=== PATIENT | male | born 1970 | race Two or more races ===

== ENCOUNTER 2017-05-03 14:04 | Emergency (ER) | payer MEDICAID ==
[~2017-05-03] VITALS: Ht 177.8 cm; Wt 63.5 kg
[2017-05-03] MEDS ORDERED: NKM (14:14)
[2017-05-03 14:30] LABS: MEAN CORPUSCULAR VOLUME 97 FL (80-99); MEAN PLATELET VOLUME 7.1 FL (6.5-10.1); PLATELET COUNT 80 K/UL (150-450); RED BLOOD COUNT 4.08 M/UL (4.70-6.10); RED CELL DISTRIBUTION WIDTH 12.3 % (11.6-14.8); WHITE BLOOD COUNT 6.4 K/UL (4.8-10.8)
[2017-05-03 14:38] LABS: ALANINE AMINOTRANSFERASE 79 U/L (3-41); ALBUMIN/GLOBULIN RATIO 1.6 (1.0-2.7); ANION GAP 29 (5-15); ASPARTATE AMINO TRANSFERASE 194 U/L (5-40); CALCIUM 9.3 mg/dL (8.6-10.2); CARBON DIOXIDE 18 mEQ/L (20-30); CHLORIDE 90 mEQ/L (98-107); CREATININE 0.9 mg/dL (0.7-1.2); GLOMERULAR FILTRATION RATE > 60 mL/min (>60); HEMOLYSIS 9; POTASSIUM 3.5 mEQ/L (3.4-4.9); SODIUM 137 mEQ/L (135-145); TOTAL PROTEIN 7.8 g/dL (6.6-8.7); TROPONIN I < 0.30 ng/mL (<=0.30)
--- NOTE | 2017-05-03 14:52 | Emergency Room Report ---
History of Present Illness General Chief Complaint: Syncope Source: Patient Present Illness HPI This patient presents with a syncopal episode. The patient works here in [employer]. The patient states that he has felt a little lightheaded today. The patient himself does not recall any events and is unable to give a history. However, apparently there was a witness that was a the patient in the hospital who noted that he stared off into space and then passed out and hit his head on the floor. The patient does have pain on his head. He denies neck pain. He denies chest pain. He denies shortness of breath. He denies abdominal pain. He denies recent illness. He denies fever or chills. Denies nausea or vomiting. Denies diarrhea. He has never had a syncopal episode in the past. He denies a history of seizures. He has no other complaints. Allergies: Coded Allergies: No Known Allergies (Unverified , 05/03/17) Patient History Past Medical History: none, see triage record Social History: Reports: alcohol use - 8 beers/evening, smoking, Denies: drug use Reviewed Nursing Documentation: PMH: Agreed, PSxH: Agreed Nursing Documentation-PMH Past Medical History: No Stated History Review of Systems All Other Systems: negative except mentioned in HPI Physical Exam Vital Signs Date Time Temp Pulse Resp B/P Pulse Ox O2 Delivery O2 Flow Rate FiO2 05/03/17 14:08 99.3 63 15 134/97 95 Room Air Sp02 EP Interpretation: reviewed, normal General Appearance: no apparent distress, alert, GCS 15, non-toxic Head: normocephalic, other - [id number] area of scalp hematoma R. parietal Eyes: bilateral eye PERRL, bilateral eye normal inspection ENT: hearing grossly normal, normal pharynx, no angioedema, normal voice Neck: full range of motion, supple/symm/no masses Respiratory: chest non-tender, lungs clear, normal breath sounds, speaking full sentences Cardiovascular #1: regular rate, rhythm, no edema Gastrointestinal: normal bowel sounds, non tender, soft, non-distended, no guarding, no rebound Rectal: deferred Musculoskeletal: back normal, gait/station normal, normal range of motion, non- tender Neurologic: alert, oriented x3, responsive, motor strength/tone normal, sensory intact, speech normal Psychiatric: judgement/insight normal, memory normal, mood/affect normal, no suicidal/homicidal ideation Skin: normal color, no rash, warm/dry, well hydrated Medical Decision Making Diagnostic Impression: Primary Impression: Syncope ER Course This patient presents with a syncopal episode. Laboratory workup showed transaminitis with an elevated bilirubin. This patient does have significant alcohol use. The patient has no abdominal pain. The patient was also found to have a significant anion gap. I am unsure of the etiology of the anion gap. I obtained a lactic acid which was within normal limits. I also obtained serum ketones which was also negative. CK is mildly elevated. I decided to repeat the BMP after a couple liters of IV fluids and this showed closing of the anion gap. Possibly this patient was just dehydrated. Regardless, I will have the patient follow up for his transaminitis an elevated bili which is likely secondary to his alcohol abuse. I suspect the syncope that the patient is presenting with is a nonemergent in etiology. Regarding the history, the patient has no history of structural heart disease or coronary artery disease, no family history of sudden , has no shortness of breath, and the syncope is not exertional. On physical exam , the patient is not hypotensive, has no findings of CHF, and no significant cardiac murmur suggestive of valvular heart disease or cardiac outflow obstruction. The patient reports no history of seizure or head trauma. EKG showed no evidence of concerning findings of QT prolongation, Brugada syndrome or significant ST changes suggestive of acute ischemia, dysrhythmias or significant conduction abnormalities. On laboratory evaluation, blood sugar was non-contributory and the patient is not anemic. The patient was counseled that, though unlikely, the possibility of an emergent cause of syncope may be present and that the patient should return immediately if symptoms persist or worsen. I believe the patient is stable for discharge to followup with his PMD for further workup. Labs Test 05/03/17 14:00 05/03/17 14:10 05/03/17 15:40 05/03/17 17:00 White Blood Count 6.4 K/UL (4.8-10.8) Red Blood Count 4.08 M/UL (4.70-6.10) Hemoglobin 13.0 G/DL (14.2-18.0) Hematocrit 39.5 % (42.0-52.0) Mean Corpuscular Volume 97 FL (80-99) Mean Corpuscular Hemoglobin 32.0 PG (27.0-31.0) Mean Corpuscular Hemoglobin Concent 33.0 G/DL (32.0-36.0) Red Cell Distribution Width 12.3 % (11.6-14.8) Platelet Count 80 K/UL (150-450) Mean Platelet Volume 7.1 FL (6.5-10.1) Neutrophils (%) (Auto) % (45.0-75.0) Lymphocytes (%) (Auto) % (20.0-45.0) Monocytes (%) (Auto) % (1.0-10.0) Eosinophils (%) (Auto) % (0.0-3.0) Basophils (%) (Auto) % (0.0-2.0) Differential Total Cells Counted 100 Neutrophils % (Manual) 77 % (45-75) Lymphocytes % (Manual) 18 % (20-45) Monocytes % (Manual) 5 % (1-10) Eosinophils % (Manual) 0 % (0-3) Basophils % (Manual) 0 % (0-2) Band Neutrophils 0 % (0-8) Platelet Estimate Decreased Platelet Morphology Normal Red Blood Cell Morphology Normal Sodium Level 137 mEQ/L (135-145) 138 mEQ/L (135-145) Potassium Level 3.5 mEQ/L (3.4-4.9) 3.5 mEQ/L (3.4-4.9) Chloride Level 90 mEQ/L (98-107) 96 mEQ/L (98-107) Carbon Dioxide Level 18 mEQ/L (20-30) 25 mEQ/L (20-30) Anion Gap 29 (5-15) 17 (5-15) Blood Urea Nitrogen 8 mg/dL (7-23) 7 mg/dL (7-23) Creatinine 0.9 mg/dL (0.7-1.2) 0.6 mg/dL (0.7-1.2) Estimat Glomerular Filtration Rate > 60 mL/min (>60) > 60 mL/min (>60) Glucose Level 144 mg/dL (74-106) 105 mg/dL (74-106) Calcium Level 9.3 mg/dL (8.6-10.2) 8.4 mg/dL (8.6-10.2) Total Bilirubin 2.3 mg/dL (0.0-1.2) Direct Bilirubin 0.4 mg/dL (0.1-0.3) Aspartate Amino Transf (AST/SGOT) 194 U/L (5-40) Alanine Aminotransferase (ALT/SGPT) 79 U/L (3-41) Alkaline Phosphatase 93 U/L (40-129) Total Creatine Kinase 634 U/L (38-174) Creatine Kinase MB 3.0 ng/mL (< 6.7) Creatine Kinase MB Relative Index 0.4 Troponin I < 0.30 ng/mL (<=0.30) Total Protein 7.8 g/dL (6.6-8.7) Albumin 4.8 g/dL (3.5-5.2) Globulin 3.0 g/dL Albumin/Globulin Ratio 1.6 (1.0-2.7) Serum Alcohol < 10 mg/dL Urine Color Pale yellow Urine Appearance Clear Urine pH 7 (4.5-8.0) Urine Specific [place] 1.010 (1.005-1.035) Urine Protein 2+ (NEGATIVE) Urine Glucose (UA) Negative (NEGATIVE) Urine Ketones Negative (NEGATIVE) Urine Occult Blood 3+ (NEGATIVE) Urine Nitrite Negative (NEGATIVE) Urine Bilirubin Negative (NEGATIVE) Urine Urobilinogen 4 MG/DL (0.0-1.0) Urine Leukocyte Esterase Negative (NEGATIVE) Urine RBC 0-2 /HPF (0 - 0) Urine WBC 0-2 /HPF (0 - 0) Urine Squamous Epithelial Cells None /LPF (NONE/OCC) Urine Bacteria Occasional /HPF (NONE) Lactic Acid Level 1.60 mmol/L (0.66-2.22) Urine Opiates Screen Negative (NEGATIVE) Urine Barbiturates Screen Negative (NEGATIVE) Phencyclidine (PCP) Screen Negative (NEGATIVE) Urine Amphetamines Screen Negative (NEGATIVE) Urine Benzodiazepines Screen Negative (NEGATIVE) Urine Cocaine Screen Negative (NEGATIVE) Urine Marijuana (THC) Screen Negative (NEGATIVE) Acetone Level Negative (NEGATIVE) EKG Diagnostic Results Rate: tachycardiac Rhythm: other ST Segments: no acute changes Rhythm Strip Diag. Results EP Interpretation: yes Rate: 100's Rhythm: no PVC's, no ectopy Other Impression S.tachycardia Chest X-Ray Diagnostic Results Chest X-Ray Ordered: Yes # of Views/Limited/Complete: 1 View Interpretation: no consolidation, no effusion, no pneumothorax, no acute cardiopulmonary disease Indication: Other - syncope Impression: No acute disease Date Electronically Signed: May 03, 2017 Time Electronically Signed: 17:22 Interpreting ER Physician: Niki CT/MRI/US Diagnostic Results CT/MRI/US Diagnostic Results : Imaging Test Ordered: CT head Impression Scalp hematoma. No intracranial bleed, mass effect or edema. See official report. Last Vital Signs Date Time Temp Pulse Resp B/P Pulse Ox O2 Delivery O2 Flow Rate FiO2 05/03/17 14:08 99.3 63 15 134/97 95 Room Air Disposition: HOME, SELF-CARE Condition: Stable Patient Instructions: Syncope LILLIE IZQUIERDO D.O. May 03, 2017 14:52
[2017-05-03 14:54] LABS: BAND NEUTROPHILS % (MANUAL) 0 % (0-8); BASOPHILS % (MANUAL) 0 % (0-2); EOSINOPHILS % (MANUAL) 0 % (0-3); LYMPHOCYTES % (MANUAL) 18 % (20-45); NEUTROPHILS % (MANUAL) 77 % (45-75); PLATELET ESTIMATE DECREASED; PLATELET MORPHOLOGY NORMAL; TOTAL CELLS COUNTED 100
[2017-05-03 14:59] LABS: BILIRUBIN,DIRECT 0.4 mg/dL (0.1-0.3)
--- NOTE | 2017-05-03 15:17 | Diagnostic Imaging Report ---
Indication: SYNCOPE Technique: One view of the chest Comparison: none Findings: Lungs and pleural spaces are clear. Heart size is normal. Impression: No acute process
[2017-05-03 16:17] LABS: APPEARANCE,URINE CLEAR; KETONES,URINE NEGATIVE (NEGATIVE); LEUKOCYTE ESTERASE ,URINE NEGATIVE (NEGATIVE); NITRITE,URINE NEGATIVE (NEGATIVE); PH,URINE 7 (4.5-8.0); PROTEIN,URINE 2+ (NEGATIVE); UROBILINOGEN,URINE 4 MG/DL (0.0-1.0)
--- NOTE | 2017-05-03 16:26 | Diagnostic Imaging Report ---
Indications: Pain, status post fall with central Technique: Spiral acquisitions obtained through the brain. Angled axial and coronal 5 x 5 mm slices were reconstructed. Total dose length product 1004 and 11 mGycm. CTDI vol(s) 70 mGy. Dose reduction achieved using automated exposure control Comparison: None Findings: There is a large right parietal scalp hematoma. No evidence of underlying calvarial injury. No acute intracranial hemorrhage or edema. No mass effect nor midline shift. Normal kathleen-white differentiation. Normal size ventricles and extra axial CSF spaces. Visualized orbits and sinuses are unremarkable. The mastoids are clear Impression: Evidence of right parietal scalp soft tissue injury Negative for acute intracranial bleed or mass effect The CT scanner at [facility] is accredited by the [employer] and the scans are performed using protocols designed to limit radiation exposure to as low as reasonably achievable to attain images of sufficient resolution adequate for diagnostic evaluation.
[2017-05-03 16:29] LABS: BACTERIA,URINE OCCASIONAL /HPF; RBC,URINE 0-2 /HPF (0 - 0); WBC,URINE 0-2 /HPF (0 - 0)
[2017-05-03 16:38] VITALS: BP 143/90
[2017-05-03 18:09] LABS: ANION GAP 17 (5-15); CALCIUM 8.4 mg/dL (8.6-10.2); CARBON DIOXIDE 25 mEQ/L (20-30); CHLORIDE 96 mEQ/L (98-107); CREATININE 0.6 mg/dL (0.7-1.2); GLOMERULAR FILTRATION RATE > 60 mL/min (>60); HEMOLYSIS 13; POTASSIUM 3.5 mEQ/L (3.4-4.9); SODIUM 138 mEQ/L (135-145)
[2017-05-03] MEDS ORDERED: IBUPROFEN600 MG ORAL (18:19)
[2017-05-03 18:30] VITALS: BP 143/90
== END 2017-05-03 18:30 | disposition home or self-care (01) ==
LOC: EEVIPCON 14:46 → EMR 14:46
DX: R55 Syncope and collapse (principal); R42 Dizziness and giddiness; E80.7 Disorder of bilirubin metabolism, unspecified; R74.0 Nonspecific elevation of levels of transaminase and lactic acid dehydrogenase [LDH]; F10.10 Alcohol abuse, uncomplicated; F17.200 Nicotine dependence, unspecified, uncomplicated
CPT/HCPCS: 36415; 70450; 71010; 80048; 80053; 80300; 80329; 81003; 82009; 82248; 82550; 82553; 83605; 84484; 85007; 85025; 93005; 96374; 96375